=== PATIENT | female | born 1940 | race Caucasian/White ===

== ENCOUNTER 2019-01-04 09:28 | Emergency (ER) | payer MEDICARE ==
--- OUTSIDE RECORDS SUMMARY | 2019-01-04 09:34 | XMS REPORT | Continuity of Care Document ---
:1940 External Reference #:[id number] Author Name Courtney Powell M.D. (transmitted by agent of provider Allie Gasca) Address [address], [place] [address] Care Team Providers Name Role Phone Courtney Powell MD - Internal Care Team Information [employer] [facility] Marisela García CNP - Adult Health Care Team Information [employer] [phone] Problems Active Problems Provider Date Hypothyroidism Paige iRvers N.P. Onset: 12/03/2010 Essential hypertension Maisha Mg M.D. Onset: 12/16/2010 Pure hypercholesterolemia Maisha Mg M.D. Onset: 12/16/2010 Allergic asthma without status asthmaticus Néstor Okeefe M.D. Onset: Stress fracture of metatarsal bone Beka Escamilla MD Onset: 10/17/2017 Nondisplaced fracture of second metatarsal Beka Escamilla MD Onset: 2017 bone, left foot, subsequent encounter for fracture with delayed healing Psoas tendinitis Carlee Sewell M.D. Onset: 09/19/2018 Prosthetic arthroplasty of the hip Carlee Sewell M.D. Onset: 09/19/2018 Social History Type Date Description Comments Sex Unknown Tobacco Use Start: Unknown Never Smoked Cigarettes ETOH Use Occasionally consumes alcohol Tobacco Use Start: Unknown Patient has never smoked Smoking Status Reviewed: 11/21/18 Patient has never smoked Exercise Type/Frequency Exercises regularly Allergies, Adverse Reactions, Alerts Active Allergies Reaction Severity Comments Date PCN 08/29/2006 Codeine ? felt faint 08/29/2006 Medications Active Medications SIG Qnty Indications Ordering Date Provider Celecoxib once a day 30caps M19.049 Courtney 09/25/201 100mg Capsules Jason Powell 9 Diclofenac Sodium apply 1 grams on 100gm M25.549 Zsofia 1% Gel hands twice daily KYAW Barragan 9 Shingrix intramuscular x 1 1units Courtney 50mcg/0.5ML then repeat in 4 Jason Powell 8 Suspension Rec months Norvasc 1 by mouth every 90tabs Courtney 10mg Tablets day Jason Powell 8 Levothyroxine Sodium Take 1 Tablet By 90tabs E03.9 Courtney 88mcg Mouth Every Other Jason Powell 6 Tablets Day Alternating With 100 mcg Levothyroxine Sodium Take 1 Tablet By 90tabs Courtney 100mcg Mouth Every Other Jason Powell 6 Tablets Day Alternating With 88 mcg Every Other Day Magnesium 1 by mouth daily Courtney 250mg Tablets Jason Powell 5 Oxybutynin Chloride ER take 1 tablet by 90tabs [facility] 10mg mouth once a day Jason Powell 4 Tablets ER 24HR Proair HFA Use 2 Puffs By 8.5units [facility] 108(90Base) Mouth Every 4 Jason Powell 4 mcg/Act Aerosol Hours as Needed Zetia take 1 tablet by 90tabs [facility] 10mg Tablets mouth every day Jason Powell 3 Fluticasone Propionate use 1 spray in 16gm [facility] each nostril in Jason Powell 7 50mcg/Act Suspension the morning Aspir-81 1 PO qd Raciel Fraser, 81mg Tablets DR HERMOSILLO 0 Vitamin B-12 1 by mouth 3 times Unknown 5000mcg Tablet a week 0 Premarin 1 application by Unknown Cream way of vagina 0 twice a week Omeprazole Take 1 Capsule By 90caps K21.[address] Mouth Daily as Jason Powell 0 Needed Hydrochlorothiazide Take 1 Capsule By 90caps Courtney 12.5mg Mouth Every Day Jason Powell 0 Capsules Vitamin D 1 by mouth every Unknown 2000Unit Tablets day 0 Medications Administered in Office Medication SIG Qnty Indications Ordering Provider Date Depomedrol 40MG Ángel Escalera M.D. 09/06/2018 Injection Celestone 3 mg and 3mg Ángel Quevedo MD 12/27/2017 Injection Celestone 3 mg and 3mg Ángel Quevedo MD 12/27/2017 Injection Depomedrol 80MG Connor Ahmadi M.D. 10/20/2014 Injection Depomedrol 80MG Connor Ahmadi M.D. 08/11/2014 Injection Synvisc Or Synvisc-One Injection Connor Ahmadi M.D. 12/13/2010 1 MG Injection Synvisc Or Synvisc-One Injection Connor Ahmadi M.D. 12/13/2010 1 MG Injection Immunizations CPT Code Status Date Vaccine Lot # [id number] Given 11/15/2018 Fluzone High Dose 18386 Given 01/22/2018 Pneumonia Vaccine [id number] 15438 Given 11/20/2017 Fluzone High Dose 03496 Given 10/28/2016 Influenza Virus Vaccine, Quadrivalent, Split, Preservative Free 93740 Given 12/25/2015 Fluzone High Dose 59905 Given 12/08/2014 Influenza Virus Vaccine, Quadrivalent, Split, [id number] Preservative Free 53019 Given 01/15/2014 Pneumococcal Conjugate Vaccine 13 Valent For [id number] Intramuscular Use 73495 Given 01/15/2014 Flu Vaccine Split Virus Preservative Free For [id number] Indiv 3Yr Older 94769 Given 11/06/2013 Tdap - Tetanus/Diptheria/Acellular Pertussis [id number] 92572 Given 12/18/2012 Flu Vaccine Split Virus Preservative Free For [id number] Indiv 3Yr Older 67090 Given 01/09/2012 Zoster (Zostavax) 50504 Given 01/09/2012 Zoster (Zostavax) [id number] Q2038 Given 11/23/2011 Fluzone Vaccine 91756 Given 12/03/2010 Influenza Virus 3Yrs & Over [id number] 99963 Given 12/28/2009 Influenza Virus 3Yrs & Over [id number] 95295 Given 03/23/2009 Influenza Virus Vaccine, Pandemic Formulation 21880 Given 03/23/2009 Administration Swine Flu Shot 35330 Given 06/03/2008 Pneumonia Vaccine [id number] 86541 Given 11/28/2006 Influenza Virus 3Yrs & Over [id number] Vital Signs Date Vital Result Comment 11/21/2018 2:09pm Height 64 inches 5'4" Weight 157.00 lb Heart Rate 72 /min BP Systolic Sitting 123 mmHg BP Diastolic Sitting 72 mmHg O2 % BldC Oximetry 98 % BMI (Body Mass Index) 26.9 kg/m2 11/12/2018 1:24pm Height 64 inches 5'4" Weight 160.00 lb Heart Rate 69 /min BP Systolic 138 mmHg BP Diastolic 75 mmHg Body Temperature 97.7 F O2 % BldC Oximetry 95 % BMI (Body Mass Index) 27.5 kg/m2 Results Test Date Facility Test Result H/L Range Note Lipid Profile 11/13/2018 [facility] Triglycerides 140 mg/dL 1 (Trig/Chol/HDL) [address] [place] [address] [phone] Cholesterol 200 mg/dL 2 HDL Cholesterol 57.0 mg/dL 3 LDL Cholesterol 115 mg/dL 4 Laboratory test 11/13/2018 [facility] TSH (Thyroid <pending> finding DRIVE Stim Horm) [place] [address] [phone] T3 Free <pending> Free T4 (Free Thyroxine) <pending> Hemoglobin A1c (Glyco HGB) 5.7 % High 4.0-5.6 5 CBC Auto 11/13/2018 [facility] White Blood 6.2 10^3/uL Normal 3.5-10.[address] [place] [address] [phone] Red Blood Count 4.42 10^6/uL Normal 3.70-4.87 Hemoglobin 13.1 g/dL Normal 12.0-16.0 Hematocrit 40 % Normal 35-47 Mean Corpuscular Volume 90 fL Normal 80-97 Mean Corpuscular Hemoglobin 30 pg Normal 27-31 Mean Corpuscular HGB Conc 33 g/dL Normal 31-36 Red Cell Distribution Width 15 % Normal 10-15 Platelet Count 324 10^3/uL Normal 150-450 Mean Platelet Volume 9.8 fL Normal 7.4-10.4 Abs Neutrophils 2.8 10^3/uL Normal 1.5-7.7 Abs Lymphocytes 2.4 10^3/uL Normal 1.0-4.8 Abs Monocytes 0.4 10^3/uL Normal 0-0.8 Abs Eosinophils 0.5 10^3/uL Normal 0-0.6 Abs Basophils 0.0 10^3/uL Normal 0-0.2 Abs Nucleated RBC 0.0 10^3/uL Granulocyte % 45.2 % Lymphocyte % 39.2 % Monocyte % 7.2 % Eosinophil % 7.8 % Basophil % 0.6 % Nucleated Red Blood Cells % 0.1 Comp Metabolic 11/13/2018 [facility] Sodium 140 mmol/L Normal 135-[address] [place] [address] [phone] Potassium 3.9 mmol/L Normal 3.5-5.0 Chloride 108 mmol/L Normal 101-111 Co2 Carbon Dioxide 27 mmol/L Normal 22-32 Anion Gap 5 mmol/L Normal 2-11 Glucose 90 mg/dL Normal 70-100 Blood Urea Nitrogen 27 mg/dL High 6-24 Creatinine 0.71 mg/dL Normal 0.51-0.95 BUN/Creatinine Ratio 38.0 High 8-20 Calcium 9.3 mg/dL Normal 8.6-10.3 Total Protein 6.3 g/dL Low 6.4-8.9 Albumin 4.1 g/dL Normal 3.2-5.2 Globulin 2.2 g/dL Normal 2-4 Albumin/Globulin Ratio 1.9 Normal 1-3 Total Bilirubin 0.50 mg/dL Normal 0.2-1.0 Alkaline Phosphatase 59 U/L Normal 34-104 Alt 18 U/L Normal 7-52 Ast 19 U/L Normal 13-39 Egfr Non- 79.8 >60 Egfr 96.6 >60 6 Laboratory test 11/13/2018 [facility] C Reactive 5.95 mg/L Normal <8.[address] [place] [address] [phone] Erythrocyte Sed Rate 10 mm/Hr Normal 0-29 Rheumatoid Factor < 10 IU/mL Normal <15 Uric Acid 6.4 mg/dL Normal 2.3-6.6 Cyclic Citrullinated Pep Igg <15.6 U 7 Lipid Profile 09/03/2018 [facility] Triglycerides 177 mg/dL 8 (Trig/Chol/HDL) [address] [place] [address] [phone] Cholesterol 233 mg/dL 9 HDL Cholesterol 53.9 mg/dL 10 LDL Cholesterol 144 mg/dL 11 Laboratory test 09/03/2018 [facility] Hemoglobin A1c 5.5 % Normal 4.0-5.6 [address] (Glyco HGB) [place] [address] [phone] Comp Metabolic 09/03/2018 [facility] Sodium 143 Normal 135- [address] mmol/L [place], [place] [id number] [phone] Potassium 3.8 mmol/L Normal 3.5-5.0 Chloride 108 mmol/L Normal 101-111 Co2 Carbon Dioxide 27 mmol/L Normal 22-32 Anion Gap 8 mmol/L Normal 2-11 Glucose 100 mg/dL Normal 70-100 Blood Urea Nitrogen 19 mg/dL Normal 6-24 Creatinine 0.62 mg/dL Normal 0.51-0.95 BUN/Creatinine Ratio 30.6 High 8-20 Calcium 9.4 mg/dL Normal 8.6-10.3 Total Protein 6.6 g/dL Normal 6.4-8.9 Albumin 4.1 g/dL Normal 3.2-5.2 Globulin 2.5 g/dL Normal 2-4 Albumin/Globulin Ratio 1.6 Normal 1-3 Total Bilirubin 0.60 mg/dL Normal 0.2-1.0 Alkaline Phosphatase 58 U/L Normal 34-104 Alt 15 U/L Normal 7-52 Ast 17 U/L Normal 13-39 Egfr Non- 93.6 >60 Egfr 113.2 >60 13 1 Desirable: <150 Borderline High: 150-199 High: 200-499 Very High: >500 2 Desirable: <200 Borderline High: 200-239 High: >239 3 Low: <40 Desirable: 40-60 High: >60 4 Desirable: <100 Near Optimal: 100-129 Borderline High: 130-159 High: 160-189 Very High: >189 5 Therapeutic target for the treatment of diabetes mellitus patients is <7% HBA1C, and in selective patients <6.0%. Please refer to [place] [employer] diabetic care guidelines for further information. 6 Because ethnic data is not always readily available, this report includes an eGFR for both -Americans and non- Americans. The National Kidney Disease Education Program (NKDEP) does not endorse the use of the MDRD equation for patients that are not between the ages of 18 and 70, are , have extremes of body size, muscle mass, or nutritional status, or are non- or non-. According to the National Kidney Foundation, irrespective of diagnosis, the stage of the disease is based on the level of kidney function: Stage Description GFR(mL/min/1.73 m(2)) 1 Kidney damage with normal or decreased GFR 90 2 Kidney damage with mild decrease in GFR 60-89 3 Moderate decrease in GFR 30-59 4 Severe decrease in GFR 15-29 5 Kidney failure <15 (or dialysis) 7 REFERENCE VALUE <20.0 (Negative) Test Performed by: [facility] [address] [place] [address] Lpta: Dionisio Walsh M.D. Ph.D.; IA# [id number] 8 Desirable: <150 Borderline High: 150-199 High: 200-499 Very High: >500 9 Desirable: <200 Borderline High: 200-239 High: >239 10 Low: <40 Desirable: 40-60 High: >60 11 Desirable: <100 Near Optimal: 100-129 Borderline High: 130-159 High: 160-189 Very High: >189 12 Therapeutic target for the treatment of diabetes mellitus patients is <7% HBA1C, and in selective patients <6.0%. Please refer to [place] [employer] diabetic care guidelines for further information. 13 Because ethnic data is not always readily available, this report includes an eGFR for both -Americans and non- Americans. The National Kidney Disease Education Program (NKDEP) does not endorse the use of the MDRD equation for patients that are not between the ages of 18 and 70, are , have extremes of body size, muscle mass, or nutritional status, or are non- or non-. According to the National Kidney Foundation, irrespective of diagnosis, the stage of the disease is based on the level of kidney function: Stage Description GFR(mL/min/1.73 m(2)) 1 Kidney damage with normal or decreased GFR 90 2 Kidney damage with mild decrease in GFR 60-89 3 Moderate decrease in GFR 30-59 4 Severe decrease in GFR 15-29 5 Kidney failure <15 (or dialysis) Procedures Date Code Description Status 09/06/2018 [id number] Inject/Drain Joint/Bursa Small W/O US Completed 10/05/2017 [id number] Bone Mineral Density Test Completed 12/23/2016 [id number] Mammogram Completed 05/16/2016 [id number] Diabetic Retinal Eye Exam Completed 04/16/2013 [id number] Bone Mineral Density Test Completed 04/16/2013 [id number] Mammogram Completed 06/10/2011 [id number] Colonoscopy Completed 08/06/2009 [id number] Bone Mineral Density Test Completed 08/06/2009 [id number] Mammogram Completed 07/25/2007 [id number] Colonoscopy Completed Medical Devices Description No Information Available Encounters Type Date Location Provider Dx Diagnosis Office Visit 11/12/2018 Rheumatology Callum Barragan, M25.541 Pain in joints 1:00p [facility] [employer] of right hand Ccmob M25.522 Pain in left elbow M25.542 Pain in joints of left hand Office Visit 09/19/2018 10:45a Orthopedic Services Carlee Sewell M25.552 Pain in left Of C.M.A. M.DBoo hip M76.12 Psoas tendinitis, left hip Z96.642 Presence of left artificial hip joint Office Visit 09/06/2018 Orthopedic Ángel M76.72 Peroneal tendinitis, 10:00a Services Of Jason Escalera left leg C.M.A. Office Visit 09/05/2018 [employer] [facility] Internal Courtney E78.2 Mixed hyperlipidemia 2:20p Medicine - Keegan Powell M.D. 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 11/21/2018 E03.9 Hypothyroidism, unspecified Courtney Powell M.D. 11/12/2018 M25.541 Pain in joints of right hand Callum Barragan, [employer] SUPERVISOR 11/12/2018 M25.522 Pain in left elbow Callum Barragan, P[employer] SUPERVISOR 11/12/2018 M25.542 Pain in joints of left hand Callum Barragan, [employer] SUPER[employer]OR 09/19/2018 M25.552 Pain in left hip Carleeumberto Sewell M.D. 09/19/2018 M76.12 Psoas tendinitis, left hip Carlee Sewell M.D. 09/19/2018 Z96.642 Presence of left artificial hip joint Carlee Sewell M.D. 09/06/2018 M76.72 Peroneal tendinitis, left leg Ángel Escalera M.D. 09/05/2018 E78.2 Mixed hyperlipidemia Courtney Powell M.D. 09/05/2018 E03.9 Hypothyroidism, unspecified Courtney Powell M.D. 08/13/2018 M25.552 Pain in left hip Courtney Powell M.D. 08/13/2018 M25.522 Pain in left elbow Courtney Powell M.D. 08/13/2018 R73.01 Impaired fasting glucose Courtney Powell M.D. 08/13/2018 E78.2 Mixed hyperlipidemia Courtney Powell M.D. 08/13/2018 I10 Essential (primary) hypertension Courtney Powell M.D. Plan of Treatment Future Appointment(s):11/26/2018 3:30 pm - KYAW Sinclair at [facility]11/21/2018 - Courtney Powell M.D.M19.049 Primary osteoarthritis, unspecified handNew Medication:Celecoxib 100 mg - once a dayE03.9 Hypothyroidism, unspecified Functional Status Description No Information Available Mental Status Description No Information Available Referrals Refer to Dr Reason for Referral Status Appt Date Harry Mckeon MD multiple bone/joint pain Scheduled 11/12/[address] [facility] [place] [address] [phone]
--- OUTSIDE RECORDS SUMMARY | 2019-01-04 09:34 | XMS REPORT | Continuity of Care Document ---
:1940 External Reference #:[id number] Author Name Ángel Escalera M.D. (transmitted by agent of provider Rosie Rick) Address [address] [place] [address] Care Team Providers Name Role Phone Courtney Powell MD - Internal Care Team Information Rn New Grad Medicine Marisela García CNP - Adult Health Care Team Information Rn New Grad [phone] Problems Active Problems Provider Date Hypothyroidism Whitney BonePBoo Onset: 12/03/2010 Essential hypertension Maisha Mg M.D. [...] Patient has never smoked Smoking Status Reviewed: 01/01/19 Patient has never smoked Exercise Type/Frequency Exercises regularly Allergies, Adverse Reactions, Alerts Active Allergies Reaction Severity Comments Date PCN 08/29/2006 Codeine ? felt faint 08/29/2006 Medications Active Medications SIG Qnty Indications Ordering Date Provider Celecoxib once a day 30caps M19.049 Courtney 100mg Capsules Jason Powell 9 Diclofenac Sodium apply 1 grams on 100gm M25.549 Zsofia 1% Gel hands twice daily KYAW Barragan 9 Shingrix intramuscular x 1 1units [facility] 50mcg/0.5ML then repeat in 4 Jason Powell 8 Suspension Rec months Norvasc 1 by mouth every 120tabs Courtney 10mg Tablets day Jason Powell 8 Levothyroxine Sodium Take 1 Tablet By 90tabs E03.9 Courtney 88mcg Mouth Every Other Jason Powell 6 Tablets Day Alternating With 100 mcg Levothyroxine Sodium Take 1 Tablet By 90tabs Courtney 100mcg Mouth Every Other Jason Powell 6 Tablets Day Alternating With 88 mcg Every Other Day Magnesium 1 by mouth daily [facility] 250mg Tablets Jason Powell 5 Oxybutynin Chloride ER take 1 tablet by 120tabs Courtney 10mg mouth once a day Jason Powell 4 Tablets ER 24HR Proair HFA Use 2 Puffs By 8.5units [facility] 108(90Base) Mouth Every 4 Jason Powell 4 mcg/Act Aerosol Hours as Needed Zetia take 1 tablet by 120tabs [facility] 10mg Tablets mouth every day Jason Powell 3 Fluticasone Propionate use 1 spray in 16gm [facility] each nostril in Jason Powell 7 50mcg/Act [...] CPT Code Status Date Vaccine Lot # [id number] Given 11/15/2018 Fluzone High Dose 51037 Given 01/22/2018 Pneumonia Vaccine [id number] 36313 Given 11/20/2017 Fluzone High Dose 88971 Given 10/28/2016 Influenza Virus Vaccine, Quadrivalent, Split, Preservative Free 87966 Given 12/25/2015 Fluzone High Dose 79611 Given 12/08/2014 Influenza Virus Vaccine, Quadrivalent, Split, [id number] Preservative Free 07547 Given 01/15/2014 Pneumococcal Conjugate Vaccine 13 Valent For [id number] Intramuscular Use 44651 Given 01/15/2014 Flu Vaccine Split Virus Preservative Free For [id number] Indiv 3Yr Older 57669 Given 11/06/2013 Tdap - Tetanus/Diptheria/Acellular Pertussis [id number] 90124 Given 12/18/2012 Flu Vaccine Split Virus Preservative Free For [id number] Indiv 3Yr Older 99454 Given 01/09/2012 Zoster (Zostavax) 22613 Given 01/09/2012 Zoster (Zostavax) [id number] Q2038 Given 11/23/2011 Fluzone Vaccine 24517 Given 12/03/2010 Influenza Virus 3Yrs & Over [id number] 04492 Given 12/28/2009 Influenza Virus 3Yrs & Over [id number] 57721 Given 03/23/2009 Influenza Virus Vaccine, Pandemic Formulation 63538 Given 03/23/2009 Administration Swine Flu Shot 80674 Given 06/03/2008 Pneumonia Vaccine [id number] 51024 Given 11/28/2006 Influenza Virus 3Yrs & Over 91466 Vital Signs Date Vital Result Comment 01/01/2019 11:33am Height 64 inches 5'4" Weight 158.00 lb Heart Rate 68 /min BP Systolic 136 mmHg BP Diastolic 76 mmHg Body Temperature 98.6 F Pain Level 5 BMI (Body Mass Index) 27.1 kg/m2 11/28/2018 2:11pm Height 64 inches 5'4" Weight 157.50 lb Heart Rate 72 /min BP Systolic 120 mmHg BP Diastolic 68 mmHg Body Temperature 97.3 F Pain Level 3 O2 % BldC Oximetry 97 % BMI (Body Mass Index) 27.0 kg/m2 Results Test Acquired Date Facility Test Result H/L Range Note Laboratory test 11/28/2018 [facility] TSH 0.06 mcIU/mL Low 0.34-5.60 finding [facility] ([place] [address] Stim Horm) [phone] Free T4 (Free Thyroxine) 1.22 ng/dL High 0.61-1.12 Pthi 11/28/2018 [facility] Calcium (PTH 9.7 mg/dL Normal 8.6- 10.3 [facility] Intact) [place] [address] [phone] PTH Intact 38.7 pg/mL Normal 12-88 Laboratory test 11/28/2018 [facility] Calcium 9.8 mg/dL Normal 8.6-10.3 [place] [address] [phone] Phosphorus 4.6 mg/dL Normal 2.5-5.0 Iron & Iron Binding 11/28/2018 [facility] Iron 91 g/dL Normal 50-212 [place] [address] [phone] Unsaturated Iron Binding < 349 g/dL Total Iron Binding Capacity 364 g/dL Normal 250-450 Transferrin 260 mg/dL Normal 203-362 % Iron Saturation 25 % Normal 15-55 Laboratory test 11/28/2018 [facility] Ferritin 48.0 ng/mL Normal 11-307 [place] [address] [phone] Laboratory test 11/13/2018 [facility] C Reactive 5.95 mg/L Normal <8.[address] [place] [address] [phone] Erythrocyte Sed Rate 10 mm/Hr Normal 0-29 Rheumatoid Factor < 10 IU/mL Normal <15 Uric Acid 6.4 mg/dL Normal 2.3-6.6 Cyclic Citrullinated Pep Igg <15.6 U 1 Comp Metabolic 11/13/2018 [facility] Sodium 140 mmol/L Normal 135-[address] [place] [address] [phone] Potassium 3.9 mmol/L Normal 3.5-5.0 Chloride 108 [...] Egfr Non- 79.8 >60 Egfr 96.6 >60 2 CBC Auto 11/13/2018 [facility] White Blood 6.2 10^3/uL Normal 3.5-10.[address] [place] [address] [phone] Red Blood Count 4.42 10^6/uL Normal 3.70-4.87 [...] % Nucleated Red Blood Cells % 0.1 Laboratory test 11/13/2018 [facility] Hemoglobin A1c 5.7 % High 4.0-5.[address] (Glyco HGB) [place] [address] [phone] Lipid Profile 11/13/2018 [facility] Triglycerides 140 4 (Trig/Chol/HDL) 101 mg/[place] [address] [phone] Cholesterol 200 mg/dL 5 HDL Cholesterol 57.0 mg/dL 6 LDL Cholesterol 115 mg/dL 7 Lipid Profile 09/03/2018 [facility] Triglycerides 177 mg/dL 8 (Trig/Chol/HDL) [address] [place] [address] [phone] Cholesterol 233 mg/dL 9 HDL Cholesterol 53.9 mg/dL 10 LDL Cholesterol 144 mg/dL 11 Laboratory test 09/03/2018 [facility] Hemoglobin A1c 5.5 % Normal 4.0-5.6 [address] (Glyco HGB) [place] [address] [phone] Comp Metabolic 09/03/2018 [facility] Sodium 143 Normal 135- [address] mmol/[place] [address] [phone] Potassium 3.8 mmol/L Normal 3.5-5.0 Chloride 108 [...] 93.6 >60 Egfr 113.2 >60 13 1 REFERENCE VALUE <20.0 (Negative) Test Performed by: [facility] [place] [address] Mixer Operator Raw Salt: Dionisio Walsh M.D. Ph.D.; IA# [id number] 2 Because ethnic data is not always readily [...] 15-29 5 Kidney failure <15 (or dialysis) 3 Therapeutic target for the treatment of diabetes mellitus patients is <7% HBA1C, and in selective patients <6.0%. Please refer to [place] [employer] diabetic care guidelines for further information. 4 Desirable: <150 Borderline High: 150-199 High: 200-499 Very High: >500 5 Desirable: <200 Borderline High: 200-239 High: >239 6 Low: <40 Desirable: 40-60 High: >60 7 Desirable: <100 Near Optimal: 100-129 Borderline High: 130-159 High: 160-189 Very High: >189 8 Desirable: <150 Borderline High: 150-199 High: 200-499 Very High: >500 9 Desirable: <200 Borderline High: 200-239 High: >239 10 Low: <40 Desirable: 40-60 High: >60 11 Desirable: <100 Near Optimal: 100-129 Borderline High: 130-159 High: 160-189 Very High: >189 12 Therapeutic target for the treatment of diabetes mellitus patients is <7% HBA1C, and in selective patients <6.0%. Please refer to [place] [employer] diabetic care guidelines for further [...] (or dialysis) Procedures Date Code Description Status 01/01/2019 37586 Injection Single Tendon Origin/Insertion Completed 11/28/2018 44694 Ultrasound, Extremity, Nonvascular, Real-Time W/Image Completed Doc,Limited 09/06/2018 Inject/Drain Joint/Bursa Small W/O US Completed 10/05/2017 [id number] Bone Mineral Density Test Completed 12/23/2016 [id number] Mammogram Completed 05/16/2016 [id number] Diabetic Retinal Eye Exam Completed 04/16/2013 [id number] Bone Mineral Density Test Completed 04/16/2013 [id number] Mammogram Completed 06/10/2011 [id number] Colonoscopy Completed 08/06/2009 [id number] Bone Mineral Density Test Completed 08/06/2009 [id number] Mammogram Completed 07/25/2007 [id number] Colonoscopy Completed Medical Devices Description No Information Available Encounters Type Date Location Provider Dx Diagnosis Office Visit 11/28/2018 Rheumatology Cesar Ferreira, 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 osteoarthritis, Ccmob unspecified hand E03.9 Hypothyroidism, unspecified Office Visit 11/12/2018 1:00p Rheumatology Callum Barragan, M25.541 Pain in [facility] - [employer] joints of Ccmob right hand M25.522 Pain in left elbow M25.542 Pain in joints of left hand Office Visit 09/19/2018 10:45a [facility] Carlee Sewell, M25.552 Pain in left at [place] M.DBoo hip M76.12 Psoas tendinitis, left hip Z96.642 Presence of left artificial hip joint Office Visit 09/06/2018 Paola Neal M76.72 Peroneal tendinitis, 10:00a Orthopedics ila Escalera M.D. left leg [place] Office Visit 09/05/2018 [facility] Internal Courtney E78.2 Mixed [facility] E[facility].9 Hypothyroidism, unspecified Office Visit 08/13/2018 9:50a [facility] Internal Courtney Powell M25.552 [facility] M25.522 Pain in left elbow R73.01 Impaired fasting glucose E78.2 Mixed hyperlipidemia I10 Essential (primary) hypertension Assessments Date Code Description Provider 01/01/2019 M76.72 Peroneal tendinitis, left leg Ángel Escalera M.D. 11/28/2018 M06.4 Inflammatory polyarthropathy Cesar Ferreira MD 11/28/2018 M18.0 Osteoarthritis of joint of left hand Cesar Ferreira MD 11/21/2018 M19.049 Primary osteoarthritis, unspecified hand Courtney Powell M.D. 11/21/2018 E03.9 Hypothyroidism, unspecified Courtney Powell M.D. 11/12/2018 M25.541 Pain in joints of right hand Rupaliofia Yung, [employer] 11/12/2018 M25.522 Pain in left elbow Zsofia Yung, [employer] 11/12/2018 M25.542 Pain in joints of left hand Zsofia Yung, [employer] 09/19/2018 M25.552 Pain in left hip Carlee Sewell M.D. 09/19/2018 M76.12 Psoas tendinitis, left [...] Courtney Powell M.D. Plan of Treatment Future Appointment(s):01/07/2019 2:00 pm - Cesar Ferreira MD at [facility]01/01/2019 - Ángel Escalera M.D.M76.72 Peroneal tendinitis, left legNew Therapy:Physical Therapy Functional Status Description No Information Available Mental Status Description No Information Available Referrals Refer to Dr Reason for Referral Status Appt Date Harry Mckeon MD multiple bone/joint pain Scheduled 11/12/2018 [address] [facility] [address] [place] [id number] [phone]
--- OUTSIDE RECORDS SUMMARY | 2019-01-04 09:34 | XMS REPORT | Continuity of Care Document ---
:1940 External Reference #:[id number] Author Name Cesar Ferreira MD (transmitted by agent of provider Diandra Junior) Address [address] [place] [id number] Care Team Providers Name Role Phone Courtney Powell MD - Internal Care Team Information [employer] Product Development Manager [phone] Medicine Marisela García CNP - Adult Health Care Team Information [employer] Product Development Manager Problems Active Problems Provider Date Hypothyroidism Kalli Bone.PBoo Onset: 12/03/2010 Essential hypertension Maisha Mg M.D. [...] Patient has never smoked Smoking Status Reviewed: 11/28/18 Patient has never smoked Exercise Type/Frequency Exercises [...] Barragan 9 Shingrix intramuscular x 1 1units [facility] 50mcg/0.5ML then repeat in 4 Jason Powell 8 Suspension Rec months Norvasc 1 by mouth every 90tabs [facility] 10mg Tablets day Jason Powell 8 Levothyroxine Sodium Take 1 Tablet By 90tabs E03.9 Courtney 88mcg Mouth Every Other Jason Powell 6 Tablets Day Alternating With 100 mcg Levothyroxine Sodium Take 1 Tablet By 90tabs [facility] 100mcg Mouth Every Other Jason Powell 6 Tablets Day Alternating With 88 mcg Every Other Day Magnesium 1 by mouth daily [facility] 250mg Tablets Jason Powell 5 Oxybutynin Chloride ER take 1 tablet by 90tabs [facility] 10mg mouth once a day Jason Powell 4 Tablets ER 24HR Proair HFA Use 2 Puffs By 8.5units Courtney 108(90Base) Mouth Every 4 Jason Powell 4 mcg/Act Aerosol Hours as Needed Zetia take 1 tablet by 90tabs [facility] 10mg Tablets mouth every day Jason Powell 3 Fluticasone Propionate use 1 spray in 16gm [facility] each nostril in Jason Powell 7 50mcg/Act [...] By 90caps Courtney 12.5mg Mouth Every Day Jsaon Powell 0 Capsules Vitamin D 1 by [...] CPT Code Status Date Vaccine Lot # [id number] Given 11/15/2018 Fluzone High Dose 52567 Given 01/22/2018 Pneumonia Vaccine [id number] 41874 Given 11/20/2017 Fluzone High Dose 51785 Given 10/28/2016 Influenza Virus Vaccine, Quadrivalent, Split, Preservative Free 44551 Given 12/25/2015 Fluzone High Dose 79244 Given 12/08/2014 Influenza Virus Vaccine, Quadrivalent, Split, [id number] Preservative Free 10280 Given 01/15/2014 Pneumococcal Conjugate Vaccine 13 Valent For [id number] Intramuscular Use 47857 Given 01/15/2014 Flu Vaccine Split Virus Preservative Free For [id number] Indiv 3Yr Older 97725 Given 11/06/2013 Tdap - Tetanus/Diptheria/Acellular Pertussis [id number] 17126 Given 12/18/2012 Flu Vaccine Split Virus Preservative Free For [id number] Indiv 3Yr Older 31882 Given 01/09/2012 Zoster (Zostavax) 35536 Given 01/09/2012 Zoster (Zostavax) [id number] Q2038 Given 11/23/2011 Fluzone Vaccine 98385 Given 12/03/2010 Influenza Virus 3Yrs & Over [id number] 42444 Given 12/28/2009 Influenza Virus 3Yrs & Over [id number] 86937 Given 03/23/2009 Influenza Virus Vaccine, Pandemic Formulation 68237 Given 03/23/2009 Administration Swine Flu Shot 16144 Given 06/03/2008 Pneumonia Vaccine [id number] 39324 Given 11/28/2006 Influenza Virus 3Yrs & Over 69276 Vital Signs Date Vital Result Comment 11/28/2018 2:11pm Height 64 inches 5'4" Weight 157.50 lb Heart Rate 72 /min BP Systolic 120 mmHg BP Diastolic 68 mmHg Body Temperature 97.3 F Pain Level 3 O2 % BldC Oximetry 97 % BMI (Body Mass Index) 27.0 kg/m2 11/21/2018 2:09pm Height 64 inches 5'4" Weight 157.00 lb Heart Rate 72 /min BP Systolic Sitting 123 mmHg BP Diastolic Sitting 72 mmHg O2 % BldC Oximetry 98 % BMI (Body Mass Index) 26.9 kg/m2 Results Test Date Facility Test Result H/L Range Note Lipid Profile 11/13/2018 [facility] Triglycerides 140 mg/dL 1 (Trig/Chol/HDL) [address] [place] [address] [phone] Cholesterol 200 mg/dL 2 HDL Cholesterol 57.0 mg/dL 3 LDL Cholesterol 115 mg/dL 4 Laboratory test 11/13/2018 [facility] Hemoglobin A1c 5.7 % High 4.0-5.[address] (Glyco HGB) [place] [address] [phone] CBC Auto Diff 11/13/2018 [facility] White Blood 6.2 Normal 3.5 -10.[address] Count 10^3/[place] [address] [phone] Red Blood Count 4.42 10^6/uL Normal 3.70-4.87 [...] Blood Cells % 0.1 Comp Metabolic 11/13/2018 [facility] Sodium 140 mmol/L Normal 135-[address] [place] [address] [phone] Potassium 3.9 mmol/L Normal 3.5-5.0 Chloride 108 [...] Egfr 96.6 >60 6 Laboratory test 11/13/2018 [facility] C Reactive 5.95 mg/L Normal <8.[address] [place] [address] [phone] Erythrocyte Sed Rate 10 mm/Hr Normal 0-29 Rheumatoid Factor < 10 IU/mL Normal <15 Uric Acid 6.4 mg/dL Normal 2.3-6.6 Cyclic Citrullinated Pep Igg <15.6 U 7 Lipid Profile 09/03/2018 [facility] Triglycerides 177 mg/dL 8 (Trig/Chol/HDL) [address] [place] [address] [phone] Cholesterol 233 mg/dL 9 HDL Cholesterol 53.9 mg/dL 10 LDL Cholesterol 144 mg/dL 11 Laboratory test 09/03/2018 [facility] Hemoglobin A1c 5.5 % Normal 4.0-5.6 [address] (Glyco HGB) [place] [address] [phone] Comp Metabolic 09/03/2018 [facility] Sodium 143 Normal 135- [address] mmol/[place] [address] [phone] Potassium 3.8 mmol/L Normal 3.5-5.0 Chloride 108 [...] in selective patients <6.0%. Please refer to [place] [employer] diabetic care guidelines for further [...] REFERENCE VALUE <20.0 (Negative) Test Performed by: [facility] [place] [address] Developmental Education Instructor: Dionisio Walsh M.D. Ph.D.; IA# [id number] Desirable: <150 Borderline High: 150-199 High: 200-499 Very High: >500 9 Desirable: <200 Borderline High: 200-239 High: >239 10 Low: <40 Desirable: 40-60 High: >60 11 Desirable: <100 Near Optimal: 100-129 Borderline High: 130-159 High: 160-189 Very High: >189 12 Therapeutic target for the treatment of diabetes mellitus patients is <7% HBA1C, and in selective patients <6.0%. Please refer to [place] [employer] diabetic care guidelines for further [...] (or dialysis) Procedures Date Code Description Status 11/28/2018 76493 Ultrasound, Extremity, Nonvascular, Real-Time W/Image Completed Doc,Limited 09/06/2018 23171 Inject/Drain Joint/Bursa Small W/O US Completed 10/05/2017 [id number] Bone Mineral Density Test Completed 12/23/2016 [id number] Mammogram Completed 05/16/2016 [id number] Diabetic Retinal Eye Exam Completed 04/16/2013 [id number] Bone Mineral Density Test Completed 04/16/2013 [id number] Mammogram Completed 06/10/2011 [id number] Colonoscopy Completed 08/06/2009 [id number] Bone Mineral Density Test Completed 08/06/2009 [id number] Mammogram Completed 07/25/2007 [id number] Colonoscopy Completed Medical Devices Description No Information Available Encounters Type Date Location Provider Dx Diagnosis Office Visit 11/21/2018 [facility] Internal Courtney Powell, M19.049 Primary 2:00p Medicine - Keegan Gomez osteoarthritis, unspecified hand E03.9 Hypothyroidism, unspecified Office Visit 11/12/2018 1:00p Rheumatology Callum Barragan, M25.541 Pain in Services Of [facility] - [employer] OFFICER joints of [facility] right hand M25.522 Pain in left elbow M25.542 Pain in joints of left hand Office Visit 09/19/2018 10:45a [employer] [facility] Carlee Sewell M25.552 Pain in left at Jass Gomez hip M76.12 Psoas tendinitis, left hip Z96.642 Presence of left artificial hip joint Office Visit 09/06/2018 [employer] Ángel M76.72 Peroneal tendinitis, 10:00a Orthopedics at Jason Escalera left leg [place] Office Visit 09/05/2018 Honorio Valdez E78.2 Mixed hyperlipidemia 2:20p Tirso Powell M.D. E03.9 Hypothyroidism, unspecified Office Visit 08/13/2018 9:50a Honorio Powell M25.552 Pain in left Medicine - Keegan Gomez hip M25.522 Pain in left elbow R73.01 Impaired fasting glucose E78.2 Mixed hyperlipidemia I10 Essential (primary) hypertension Assessments Date Code Description Provider 11/28/2018 M06.4 Inflammatory polyarthropathy Cesar Ferreira MD 11/28/2018 M18.0 Osteoarthritis of joint of left hand Csear Ferreira MD 11/21/2018 M19.049 Primary osteoarthritis, unspecified hand Courtney Powell M.D. 11/21/2018 E03.9 Hypothyroidism, unspecified Courtney Powell M.D. 11/12/2018 M25.541 Pain in joints of right hand Zsofia Yung, [facility] 11/12/2018 M25.522 Pain in left elbow Zsofia Yung, [facility] 11/12/2018 M25.542 Pain in joints of left hand Zsofia Yung, [facility] 09/19/2018 M25.552 Pain in left hip Carlee [...] Courtney Powell M.D. Plan of Treatment Future Appointment(s):12/26/2018 2:00 pm - Cesar Ferreira MD at [facility]11/28/2018 - Cesar Ferreira, MDM06.4 Inflammatory polyarthropathyNew Therapy:Occupational TherapyFollow up:f/u 4 weeks Take Celebrex daily, pay attention to morning stiffness and finger pains as well as foot painM18.0 Osteoarthritis of joint of left hand Functional Status Description No Information Available Mental Status Description No Information Available Referrals Refer to Reason for Referral Status Appt Date Harry Mckeon MD multiple bone/joint pain Scheduled 11/12/2018 [facility] [place] [address] [place] [address] [phone]
--- OUTSIDE RECORDS SUMMARY | 2019-01-04 09:34 | XMS REPORT | Continuity of Care Document ---
:1940 External Reference #:[id number] Author Name KYAW Sinclair (transmitted by agent of provider Allie Gasca) Address [address] [place] [id number] Care Team Providers Name Role Phone Courtney Powell MD - Internal Care Team Information Press Operator Meat [phone] Medicine Marisela García CNP - Adult Health Care Team Information Press Operator Meat Problems Active Problems Provider Date Hypothyroidism Whitney [...] Patient has never smoked Smoking Status Reviewed: 11/12/18 Patient has never smoked Exercise Type/Frequency Exercises regularly Allergies, Adverse Reactions, Alerts Active Allergies Reaction Severity Comments Date PCN 08/29/2006 Codeine ? felt faint 08/29/2006 Medications Active Medications SIG Qnty Indications Ordering Date Provider Diclofenac Sodium apply 1 grams on 100gm M25.549 Kenyaa 1% Gel hands twice daily KYAW Barragan 9 Shingrix intramuscular x 1 1units Courtney 50mcg/0.5ML then repeat in 4 Jason Powell 8 Suspension Rec months Norvasc 1 by mouth every 90tabs Courtney 10mg Tablets day Jason Powell 8 Flovent HFA 2 puffs bid prn 36gm Courtney 220mcg/Act Jason Powell 7 Aerosol Levothyroxine Sodium Take 1 Tablet By 90tabs [...] Chloride ER take 1 tablet by 90tabs Courtney 10mg mouth once a day Jason Powell 4 Tablets ER 24HR Proair HFA Use 2 Puffs By 8.5units [facility] 108(90Base) Mouth Every 4 Jason Powell 4 mcg/Act Aerosol Hours as Needed Zetia take 1 tablet by 90tabs Courtney 10mg Tablets mouth every day Jason Powell 3 Fluticasone Propionate use 1 spray in 16gm Courtney each nostril in Jason Powell 7 50mcg/Act [...] CPT Code Status Date Vaccine Lot # [id number] Given 01/22/2018 Pneumonia Vaccine [id number] 84979 Given 11/20/2017 Fluzone High Dose 85329 Given 10/28/2016 Influenza Virus Vaccine, Quadrivalent, Split, Preservative Free 44743 Given 12/25/2015 Fluzone High Dose 41548 Given 12/08/2014 Influenza Virus Vaccine, Quadrivalent, Split, [id number] Preservative Free 67894 Given 01/15/2014 Pneumococcal Conjugate Vaccine 13 Valent For [id number] Intramuscular Use 00529 Given 01/15/2014 Flu Vaccine Split Virus Preservative Free For [id number] Indiv 3Yr Older 82506 Given 11/06/2013 Tdap - Tetanus/Diptheria/Acellular Pertussis [id number] 84597 Given 12/18/2012 Flu Vaccine Split Virus Preservative Free For [id number] Indiv 3Yr Older 13268 Given 01/09/2012 Zoster (Zostavax) [id number] 68351 Given 01/09/2012 Zoster (Zostavax) [id number] Given 11/23/2011 Fluzone Vaccine 52549 Given 12/03/2010 Influenza Virus 3Yrs & Over [id number] 62651 Given 12/28/2009 Influenza Virus 3Yrs & Over [id number] 77598 Given 03/23/2009 Influenza Virus Vaccine, Pandemic Formulation 35228 Given 03/23/2009 Administration Swine Flu Shot 99005 Given 06/03/2008 Pneumonia Vaccine [id number] 17503 Given 11/28/2006 Influenza Virus 3Yrs & Over [id number] Vital Signs Date Vital Result Comment 11/12/2018 1:24pm Height 64 inches 5'4" Weight 160.00 lb Heart Rate 69 /min BP Systolic 138 mmHg BP Diastolic 75 mmHg Body Temperature 97.7 F O2 % BldC Oximetry 95 % BMI (Body Mass Index) 27.5 kg/m2 09/19/2018 11:15am Height 64 inches 5'4" Weight 155.00 lb Heart Rate 70 /min BP Systolic 118 mmHg BP Diastolic 78 mmHg Respiratory Rate 16 /min Body Temperature 97.7 F Pain Level 8 BMI (Body Mass Index) 26.6 kg/m2 Results Test Date Facility Test Result H/L Range Note Lipid Profile 09/03/2018 [facility] Triglycerides 177 mg/dL 1 (Trig/Chol/HDL) [address] [place] [address] [phone] Cholesterol 233 mg/dL 2 HDL Cholesterol 53.9 mg/dL 3 LDL Cholesterol 144 mg/dL 4 Laboratory test 09/03/2018 [facility] Hemoglobin A1c 5.5 % Normal 4.0-5.[address] (Glyco HGB) [place] [address] [phone] Comp Metabolic 09/03/2018 [facility] Sodium 143 Normal 135- [address] mmol/[place] [address] [phone] Potassium 3.8 mmol/L Normal 3.5-5.0 Chloride 108 [...] Egfr Non- 93.6 >60 Egfr 113.2 >60 6 1 Desirable: <150 Borderline High: 150-199 High: 200-499 Very High: >500 2 Desirable: <200 Borderline High: 200-239 High: >239 3 Low: <40 Desirable: 40-60 High: >60 4 Desirable: <100 Near Optimal: 100-129 Borderline High: 130-159 High: 160-189 Very High: >189 5 Therapeutic target for the treatment of diabetes mellitus patients is <7% HBA1C, and in selective patients <6.0%. Please refer to [place] [employer] diabetic care guidelines for further [...] dialysis) Procedures Date Code Description Status 09/06/2018 01196 Inject/Drain Joint/Bursa Small W/O US Completed 10/05/2017 771400801 Bone Mineral Density Test Completed 12/23/2016 [id number] Mammogram Completed 05/16/2016 103259097 Diabetic Retinal Eye Exam Completed 04/16/2013 [id number] Bone Mineral Density Test Completed 04/16/2013 [id number] Mammogram Completed 06/10/2011 [id number] Colonoscopy Completed 08/06/2009 769472907 Bone Mineral Density Test Completed 08/06/2009 [id number] Mammogram Completed 07/25/2007 [id number] Colonoscopy Completed Medical Devices Description No Information Available Encounters Type Date Location Provider Dx Diagnosis Office Visit 09/19/2018 [facility] Carlee Sewell, M25.552 Pain in left hip 10:45a [facility] M76.12 Psoas tendinitis, left hip Z96.642 Presence of left artificial hip joint Office Visit 09/06/2018 Orthopedic Ángel Brady76.72 Peroneal tendinitis, 10:00a [facility]alera left leg [facility] Office Visit 09/05/2018 [facility]ney E78.2 Mixed hyperlipidemia 2:20p Medicine - Keegan Powell M.D. E03.9 Hypothyroidism, unspecified Office Visit 08/13/2018 9:50a [facility] Courtney Powell M25.552 Pain in left Medicine - Keegan M.D. hip M25.522 Pain in left elbow R73.01 Impaired fasting glucose E78.2 Mixed hyperlipidemia I10 Essential (primary) hypertension Assessments Date Code Description Provider 11/12/2018 M25.549 Pain in joints of unspecified hand Rupaliofia Yung, [facility] 11/12/2018 M25.522 Pain in left elbow Rupaliofia Yung, [facility] 09/19/2018 M25.552 Pain in left hip [...] Powell M.D. Plan of Treatment Future Appointment(s):11/26/2018 3:00 pm - KYAW Sinclair at [facility] - [facility]11/21/2018 2:00 pm - Courtney Powell M.D. at [facility] Internal Medicine - [facility]11/12/2018 - LUDMILA SinclairPM25.549 Pain in joints of unspecified handNew Medication:Diclofenac Sodium 1 % - apply 1 grams on hands twice dailyComments:We will work up to rule out rheumatoid arthritis.We discussed today that rest by changing activities or wearing a splint can help. A splint or a snug sleeve (less restrictive) can support a joint. Paraffin baths and warm compresses can help to keep a joint mobile. The goal is to reduce pain, and preserve joint mobility and function as possible. Hand PT can teach joint protection exercises and activity modification to help protect joints. Anti-inflammatory medications (oral and topical) or a steroid injection into the joint can decrease pain, but neither cures osteoarthritis.Follow up:[address] FerreiraM25.522 Pain in left elbow Functional Status Description No Information Available Mental Status Description No Information Available Referrals Refer to Reason for Referral Status Appt Date Harry Mckeon MD multiple bone/joint pain Scheduled 11/12/2018 [address] [place] [address] [place] [address] [phone]
[2019-01-04 09:43] VITALS: BP 137/69
--- NOTE | 2019-01-04 10:34 | UC ---
Hand/Wrist HPI - HPI Summary HPI Summary: 78-year-old female presents with complaints of right wrist pain. States this morning she slipped on some ice, fell backwards, and landed on an outstretched arm. Complains of pain to the radial wrist. Pain worsens with movement. No alleviating factors. Denies any numbness, tingling or any other injury. - History Of Current Complaint Chief Complaint: UCUpperExtremity Stated Complaint: hand injury Time Seen by Provider: 01/04/19 10:07 Hx Obtained From: Patient Pain Intensity: 5 - Allergies/Home Medications Allergies/Adverse Reactions: Allergies Allergy/AdvReac Type Severity Reaction Status Date / Time Penicillins Allergy Severe Anaphylatic Verified 01/04/19 09:44 Shock codeine AdvReac Severe syncope Verified 01/04/19 09:44 Home Medications: Home Medications Cholecalciferol TAB* [Vitamin D TAB*] 1,000 unit PO DAILY 01/04/19 [History Confirmed 01/04/19] Cyanocobalamin TAB* [Vitamin B12 TAB*] 500 mcg PO DAILY 01/04/19 [History Confirmed 01/04/19] Hydrochlorothiazide TAB* [Hydrodiuril TAB*] 12.5 mg PO DAILY 01/04/19 [History Confirmed 01/04/19] celeCOXIB CAP* [CeleBREX CAP*] 200 mg PO DAILY 01/04/19 [History Confirmed 01/04] PMH/Surg Hx/FS Hx/Imm Hx Endocrine History: Thyroid Disease Cardiovascular History: Hypertension GI/ History: Other - [facility] - Surgical History Surgical History: Yes Surgery Procedure, Year, and Place: LEFT KNEE REPLACEMENT. 08/10, APPENDECTOMY, . BILAT KNEE ARTHROSCOPY,. BREAST IMPLANTS 1989 - . CATARACTS. Lt HIP REPLACEMENT - Family History Known Family History: Positive: None - Social History Occupation: Retired Lives: Alone Alcohol Use: Occasionally Substance Use Type: None Smoking Status (MU): Never Smoked Tobacco Review of Systems All Other Systems Reviewed And Are Negative: Yes Constitutional: Positive: Negative Skin: Negative: Bruising Respiratory: Positive: Negative Cardiovascular: Positive: Negative Gastrointestinal: Positive: Negative Genitourinary: Positive: Negative Motor: Negative: Weakness Neurovascular: Negative: Decreased Sensation Musculoskeletal: Positive: Other: - See HPI Neurological: Positive: Negative Is Patient Immunocompromised?: No Physical Exam - Summary Physical Exam Summary: GENERAL APPEARANCE: Well developed, well nourished, alert and cooperative, and appears to be in no acute distress. HEAD: Atraumatic. Normocephalic. NECK: Neck supple, non-tender. Full ROM CARDIAC: Normal S1 and S2. No S3, S4 or murmurs. Rhythm is regular. There is no peripheral edema, cyanosis or pallor. Extremities are warm and well perfused. Capillary refill is less than 2 seconds. Peripheral pulses intact. LUNGS: Clear to auscultation without rales, rhonchi, wheezing or diminished breath sounds. ABDOMEN: Positive bowel sounds. Soft, nondistended, nontender. No guarding or rebound. No masses or hepatosplenomegally. MUSKULOSKELETAL: ROM intact to all extremities. No joint erythema or tenderness. Normal muscular development. Normal gait. BACK: No spinal deformity or tenderness, decreased range of motion or muscular spasm. EXTREMITIES: Tenderness over the radial wrist without gross deformity, ecchymosis, or edema. Mildly reduced ROM due to pain. Circulation and sensation intact. SKIN: Skin normal color, texture and turgor with no lesions or eruptions. Triage Information Reviewed: Yes Vital Signs: Initial Vital Signs Temp 98.7 F 01/04/19 09:38 Pulse 65 01/04/19 09:38 Resp 16 01/04/19 09:38 BP 137/69 01/04/19 09:38 Pulse Ox 100 01/04/19 09:38 Vital Signs Reviewed: Yes Diagnostics - Radiology No standard instances Radiology Interpretation Completed By: Radiologist Summary of Radiographic Findings: Order Information: WRIST RIGHT 3+ VWS. HISTORY: FALL, PAIN . COMPARISONS: None relevant available at the time of dictation. VIEWS: 4, Frontal, lateral, and oblique views of the right wrist. FINDINGS: BONE DENSITY: There is diffuse osteopenia. BONES: There is no displaced fracture. 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 ALIGNMENT: There is no dislocation. SOFT TISSUES: Unremarkable. OTHER FINDINGS: None. IMPRESSION: OSTEOPENIA. OSTEOARTHRITIS. NO ACUTE OSSEOUS INJURY. Hand/Wrist Course/Dx - Course Course Of Treatment: 78-year-old female presents with complaints of right wrist pain. States this morning she slipped on some ice, fell backwards, and landed on an outstretched arm. Complains of pain to the radial wrist. Pain worsens with movement. No alleviating factors. Denies any numbness, tingling or any other injury. Afebrile. Vital signs stable. Patient had tenderness over the radial wrist without gross deformity, ecchymosis, or edema. Mildly reduced ROM due to pain. Circulation and sensation intact. Exam was unremarkable. X-ray showed no acute osseous injury. Reviewed findings with the patient. Recommending conservative treatment for a right wrist sprain including [id number] analgesics and RICE. Patient was given a dose of acetaminophen in the clinic for pain. She was placed in a cockup wrist splint by the RN. She is to follow- up with orthopedic surgery in 7 days if symptoms are not improving. Anticipatory guidance and warning symptoms were reviewed with the patient. Verbalizes understanding and agrees with plan of care. - Differential Dx/Diagnosis Differential Diagnosis/HQI/PQRI: Contusion, Dislocation, Fracture, Sprain Provider Diagnosis: Right wrist sprain Discharge ED - Sign-Out/Discharge Documenting (check all that apply): Patient Departure All imaging exams completed and their final reports reviewed: Yes - Discharge Plan Condition: Stable Disposition: HOME Patient Education Materials: Wrist Sprain (ED) Referrals: Courtney Powell MD [Primary Care Provider] - Carlee Sewell MD [Medical Doctor] - 7 Days (If no improvement. Call for appointment.) Additional Instructions: The x-ray performed in the clinic today showed no evidence of a fracture. Rest the wrist as much as possible. Apply ice to the affected area for 15-20 minutes at least 4 times a day to help with the pain and swelling. Elevate the arm to help reduce swelling. Take acetaminophen (Tylenol) or ibuprofen (Advil, Motrin) according to directions as needed for pain. Follow up with orthopedic surgery in 7 days if symptoms do not improve. Call for appointment. Seek immediate medical attention if you have severe pain not managed with pain medication, develop numbness or tingling in the hand or fingers, or have any worsening of symptoms. - Billing Disposition and Condition Condition: STABLE Disposition: Home
[2019-01-04] MEDS ORDERED: Acetaminophen TAB* 325 MG PO ONE (10:41)
== END 2019-01-04 10:48 | disposition home or self-care (01) ==
LOC: UCEAST 09:28
DX: S63.501A Unspecified sprain of right wrist, initial encounter (principal); W00.0XXA Fall on same level due to ice and snow, initial encounter; Y92.9 Unspecified place or not applicable; M85.831 Other specified disorders of bone density and structure, right forearm; M19.031 Primary osteoarthritis, right wrist; I10 Essential (primary) hypertension; Z96.652 Presence of left artificial knee joint; Z96.642 Presence of left artificial hip joint; Z88.5 Allergy status to narcotic agent; Z88.0 Allergy status to penicillin
CPT/HCPCS: 99213; A9270-GY; G0463

== ENCOUNTER 2019-01-19 13:02 | Emergency (ER) | payer MEDICARE ==
--- OUTSIDE RECORDS SUMMARY | 2019-01-19 13:08 | XMS REPORT | Continuity of Care Document ---
:1940 External Reference #:[id number] Author Name Cesar Ferreira MD (transmitted by agent of provider Allie Gasca) Address [address] [place] [id number] Care Team Providers Name Role Phone Courtney Powell MD - Internal Care Team Information [facility] Marisela García CNP - Adult Health Care Team Information [facility] [phone] Problems Active Problems Provider Date Hypothyroidism Kalli [...] Patient has never smoked Smoking Status Reviewed: 01/07/19 Patient has never smoked Exercise Type/Frequency Exercises regularly Allergies, Adverse Reactions, Alerts Active Allergies Reaction Severity Comments Date PCN 08/29/2006 Codeine ? felt faint 08/29/2006 Medications Active Medications SIG Qnty Indications Ordering Date Provider Hydroxychloroquine take one tab by 180tabs M06.4 Cesar Sulfate mouth daily for MD Hanna 9 200mg Tablets one week, then increase to one tab twice daily thereafter Celecoxib once a day 120caps M19.049 Cesar 100mg Capsules MD Hanna 9 Diclofenac Sodium apply 1 grams on 100gm M25.549 Zsofia 1% Gel hands twice daily KYAW Barragan 9 Shingrix intramuscular x 1 1units [facility] 50mcg/0.5ML then repeat in 4 Jason Powell 8 Suspension Rec months Norvasc 1 by mouth every 120tabs [facility] 10mg Tablets day Jason Powell 8 Levothyroxine Sodium Take 1 Tablet By 90tabs E03.9 [facility] 88mcg Mouth Every Other Jason Powell 6 Tablets Day Alternating With 100 mcg Levothyroxine Sodium Take 1 Tablet By 90tabs Courtney 100mcg Mouth Every Other Jason Powell 6 Tablets Day Alternating With 88 mcg Every Other Day Magnesium 1 by mouth daily [facility] 250mg Tablets Jason Powell 5 Oxybutynin Chloride ER take 1 tablet by 120tabs Courtney 10mg mouth once a day Jason Powell 4 Tablets ER 24HR Proair HFA Use 2 Puffs By 8.5units Courtney 108(90Base) Mouth Every 4 Jason Powell 4 mcg/Act Aerosol Hours as Needed Zetia take 1 tablet by 120tabs Courtney 10mg Tablets mouth every day Jason [...] 0 Needed Hydrochlorothiazide Take 1 Capsule By ladonna Courtney 12.5mg Mouth Every Day Jason Powell 0 Capsules Vitamin D 1 by mouth every Unknown 2000Unit Tablets day 0 Medications Administered in Office Medication SIG Qnty Indications Ordering Provider Date Depomedrol 40MG Ángel Escalera M.D. 01/01/2019 Injection Depomedrol 40MG Ángel Escalera M.D. 09/06/2018 Injection [...] CPT Code Status Date Vaccine Lot # [id number] Given 11/15/2018 Fluzone High Dose 98212 Given 01/22/2018 Pneumonia Vaccine [id number] 02600 Given 11/20/2017 Fluzone High Dose 41341 Given 10/28/2016 Influenza Virus Vaccine, Quadrivalent, Split, Preservative Free 45015 Given 12/25/2015 Fluzone High Dose 78718 Given 12/08/2014 Influenza Virus Vaccine, Quadrivalent, Split, [id number] Preservative Free 71259 Given 01/15/2014 Pneumococcal Conjugate Vaccine 13 Valent For [id number] Intramuscular Use 19773 Given 01/15/2014 Flu Vaccine Split Virus Preservative Free For [id number] Indiv 3Yr Older 60688 Given 11/06/2013 Tdap - Tetanus/Diptheria/Acellular Pertussis [id number] 13991 Given 12/18/2012 Flu Vaccine Split Virus Preservative Free For [id number] Indiv 3Yr Older 47059 Given 01/09/2012 Zoster (Zostavax) 30633 Given 01/09/2012 Zoster (Zostavax) [id number] Q2038 Given 11/23/2011 Fluzone Vaccine 29162 Given 12/03/2010 Influenza Virus 3Yrs & Over [id number] 08385 Given 12/28/2009 Influenza Virus 3Yrs & Over [id number] 51798 Given 03/23/2009 Influenza Virus Vaccine, Pandemic Formulation 54653 Given 03/23/2009 Administration Swine Flu Shot 28432 Given 06/03/2008 Pneumonia Vaccine [id number] 17937 Given 11/28/2006 Influenza Virus 3Yrs & Over 31859 Vital Signs Date Vital Result Comment 01/07/2019 2:16pm Height 64 inches 5'4" Weight 158.00 lb Heart Rate 72 /min BP Systolic 106 mmHg BP Diastolic 65 mmHg Body Temperature 98.8 F Pain Level 6 O2 % BldC Oximetry 97 % BMI (Body Mass Index) 27.1 kg/m2 01/01/2019 11:33am Height 64 inches 5'4" Weight 158.00 lb Heart Rate 68 /min BP Systolic 136 mmHg BP Diastolic 76 mmHg Body Temperature 98.6 F Pain Level 5 BMI (Body Mass Index) 27.1 kg/m2 Results Test Acquired Date Facility Test Result H/L Range Note Laboratory test 11/28/2018 [facility] TSH 0.06 mcIU/mL Low 0.34-5.[address] ([place] [address] Stim Horm) [phone] Free T4 (Free Thyroxine) 1.22 ng/dL High 0.61-1.12 Pthi 11/28/2018 [facility] Calcium (PTH 9.7 mg/dL Normal 8.6- 10.3 DRIVE Intact) [place] [address] [phone] PTH Intact 38.7 pg/mL Normal 12-88 Laboratory test 11/28/2018 [facility] Calcium 9.8 mg/dL Normal 8.6-10.[address] [place] [address] [phone] Phosphorus 4.6 mg/dL Normal 2.5-5.0 Iron & Iron Binding 11/28/2018 [facility] Iron 91 g/dL Normal 50-[address] [place] [address] [phone] Unsaturated Iron Binding < 349 g/dL Total Iron Binding Capacity 364 g/dL Normal 250-450 Transferrin 260 mg/dL Normal 203-362 % Iron Saturation 25 % Normal 15-55 Laboratory test 11/28/2018 [facility] Ferritin 48.0 ng/mL Normal 11-[address] [place] [address] [phone] Laboratory test 11/13/2018 [facility] C Reactive 5.95 mg/L Normal <8.01 [place] [address] [phone] Erythrocyte Sed Rate 10 mm/Hr Normal 0-29 Rheumatoid Factor < 10 IU/mL Normal <15 Uric Acid 6.4 mg/dL Normal 2.3-6.6 Cyclic Citrullinated Pep Igg <15.6 U 1 Comp Metabolic 11/13/2018 [facility] Sodium 140 mmol/L Normal 135-[address] [place] [address] [phone] Potassium 3.9 mmol/L Normal 3.5-5.0 Chloride 108 [...] Egfr 96.6 >60 2 CBC Auto 11/13/2018 [facility] White Blood 6.2 10^3/uL Normal 3.5-10.8 Diff [address] [place] [address] [phone] Red Blood Count 4.42 10^6/uL Normal 3.70-4.87 [...] Blood Cells % 0.1 Laboratory test 11/13/2018 [facility] Hemoglobin A1c 5.7 % High 4.0-5.[address] (Glyco HGB) [place] [address] [phone] Lipid Profile 11/13/2018 [facility] Triglycerides 140 4 (Trig/Chol/HDL) 101 mg/[place] [address] [phone] Cholesterol 200 mg/dL 5 HDL Cholesterol 57.0 mg/dL 6 LDL Cholesterol 115 mg/dL 7 Lipid Profile 09/03/2018 [facility] Triglycerides 177 mg/dL 8 (Trig/Chol/HDL) [address] [place] [address] [phone] Cholesterol 233 mg/dL 9 HDL Cholesterol 53.9 mg/dL 10 LDL Cholesterol 144 mg/dL 11 Laboratory test 09/03/2018 [facility] Hemoglobin A1c 5.5 % Normal 4.0-5.6 [address] (Glyco HGB) [place] [address] [phone] Comp Metabolic 09/03/2018 [facility] Sodium 143 Normal 135- [address] mmol/[place] [address] [phone] Potassium 3.8 mmol/L Normal 3.5-5.0 Chloride 108 [...] REFERENCE VALUE <20.0 (Negative) Test Performed by: [id number] [place] [address] Retail Advertising Account Executive: Dionisio Walsh M.D. Ph.D.; IA# [id number] 2 Because ethnic data is not always [...] in selective patients <6.0%. Please refer to [employer] diabetic care guidelines for further [...] in selective patients <6.0%. Please refer to [employer] diabetic care guidelines for further [...] (or dialysis) Procedures Date Code Description Status 01/01/201982472 Injection Single Tendon Origin/Insertion Completed 11/28/2018 64415 Ultrasound, Extremity, Nonvascular, Real-Time W/Image Completed Doc,Limited 09/06/201881254 Inject/Drain Joint/Bursa Small W/O US Completed 10/05/2017 [id number] Bone Mineral Density Test Completed 12/23/2016 [id number] Mammogram Completed 05/16/2016 [id number] Diabetic Retinal Eye Exam Completed 04/16/2013 [id number] Bone Mineral Density Test Completed 04/16/2013 [id number] Mammogram Completed 06/10/2011 [id number] Colonoscopy Completed 08/06/2009 [id number] Bone Mineral Density Test Completed 08/06/2009 [id number] Mammogram Completed 07/25/2007 [id number] Colonoscopy Completed Medical Devices Description No Information Available Encounters Type Date Location Provider Dx Diagnosis Office Visit 01/07/2019 Rheumatology Cesar Ferreira, M06.4 Inflammatory 2:00p Services Of [facility]io Azevedo MD polyarthropathy Ccmob M06.00 Rheumatoid arthritis without rheumatoid factor, [facility] Z91.89 Oth personal risk factors, not elsewhere classified Office Visit 11/28/2018 Rheumatology Cesar M06.4 Inflammatory 2:00p Services Of Honorio Ferreira MD polyarthropathy Ccmob M18.0 Bilateral primary osteoarth of first carpometacarp joints Office Visit 11/21/2018 [facility] Internal Courtney M19.049 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 E03.9 Hypothyroidism, unspecified Office Visit 11/12/2018 1:00p Rheumatology Callum Barragan, M25.541 Pain in Services Of [facility] - AIRLINE ATTENDANT joints [facility] right hand M25.522 Pain in left elbow M25.542 Pain in joints of left hand Office Visit 09/19/2018 10:45a [facility] Carlee Sewell, M25.552 Pain in left at [place] Jason hip M76.12 Psoas tendinitis, left hip Z96.642 Presence of left artificial hip joint Office Visit 09/06/2018 [facility] M76.72 Peroneal tendinitis, 10:00a Orthopedics at Jason Escalera left leg [place] Office Visit 09/05/2018 Honor[facility] Internal Courtney E78.2 Mixed hyperlipidemia 2:20p Tirso Powell M.D. E03.9 Hypothyroidism, unspecified Office Visit 08/13/2018 9:50a [facility] Internal Courtney Powell M25.552 Pain in left Medicine Roberto Carlos Allison M.D. hip M25.522 Pain in left elbow R73.01 Impaired fasting glucose E78.2 Mixed hyperlipidemia I10 Essential (primary) hypertension Assessments Date Code Description Provider 01/07/2019 M06.4 Inflammatory polyarthropathy Cesar Ferreira MD 01/07/2019 M06.00 Seronegative rheumatoid arthritis Cesar Ferreira MD 01/07/2019 Z91.89 Taking high risk medication Cesar Ferreira MD 01/01/2019 M76.72 Peroneal tendinitis, left leg Ángel Escalera M.D. 11/28/2018 M06.4 Inflammatory polyarthropathy Cesar Ferreira MD 11/28/2018 M18.0 Osteoarthritis of joint of left hand Cesar Ferreira MD 11/21/2018 M19.049 Primary osteoarthritis, unspecified hand Courtney Powell M.D. 11/21/2018 E03.9 Hypothyroidism, unspecified Courtney Powell M.D. 11/12/2018 M25.541 Pain in joints of right hand Zsofia Yung, [facility] 11/12/2018 M25.522 Pain in left elbow Zsofia Yung, [facility] 11/12/2018 M25.542 Pain in joints of left hand Zsofia Yung, [facility] 09/19/2018 M25.552 Pain in left hip [...] hypertension Courtney Powell M.D. 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 Starting treatment with hydroxychloraquine (plaquenil) 200mg twice daily. Also continuing celebrex 100mg daily. Joints involved include the MCPs bilaterally.Follow up:f/u when coming back (May timeframe)M06.00 Seronegative rheumatoid idxixbltoM10.89 Taking high risk medication Functional Status Description No Information Available Mental Status Description No Information Available Referrals Refer to Reason for Referral Status Appt Date Harry Mckeon MD multiple bone/joint pain Scheduled 11/12/2018 [address] [place] [address] [place] [address] [phone]
--- OUTSIDE RECORDS SUMMARY | 2019-01-19 13:08 | XMS REPORT | Continuity of Care Document ---
:1940 External Reference #:[id number] Author Name Courtney Powell M.D. (transmitted by agent of provider Allie Gasca) Address [address] [facility], [place] [address] Care Team Providers Name Role Phone Courtney Powell MD - Internal Care Team Information [employer] [facility] Marisela García CNP - Adult Health Care Team Information [employer] Problems Active Problems Provider Date Hypothyroidism Paige Rivers N.P. Onset: 12/03/2010 Essential hypertension Maisha Mg [...] Patient has never smoked Smoking Status Reviewed: 01/16/19 Patient has never smoked Exercise Type/Frequency Exercises regularly Allergies, Adverse Reactions, Alerts Active Allergies Reaction Severity Comments Date PCN 08/29/2006 Codeine ? felt faint 08/29/2006 Medications Active Medications SIG Qnty Indications Ordering Date Provider Doxycycline Monohydrate 1 cap by mouth 20caps Courtney 11/20/201 100mg twice a day Jason Powell 9 Capsules Mupirocin apply 3 times a 22gm R21 Néstor Palomares. 2% Ointment day for 10 days Jason Okeefe 9 Hydroxychloroquine has not started 180tabs M06.4 Cesar Sulfate yet----take one MD Hanna 9 200mg Tablets tab by mouth daily for one week, then increase to one tab twice daily thereafter Celecoxib once a day 120caps M19.049 Cesar 100mg Capsules MD Hanna 9 Diclofenac Sodium apply 1 grams on 100gm M25.549 Zsofia 1% Gel hands twice daily KYAW Barragan 9 Shingrix intramuscular x 1 1units [facility] 50mcg/0.5ML then repeat in 4 Jason Powell 8 Suspension Rec months Norvasc 1 by mouth every 120tabs [facility] 10mg Tablets day Jason Powell 8 Levothyroxine Sodium Take 1 Tablet By 90tabs E03.9 [facility] 88mcg Mouth Every Other Jason Powell 6 Tablets Day Alternating With 100 mcg Levothyroxine Sodium Take 1 Tablet By 90tabs Courtney 100mcg Mouth Every Other Jason Powell 6 Tablets Day Alternating With 88 mcg Every Other Day Magnesium 1 by mouth daily [facility] 250mg Tablets Jason Powell 5 Oxybutynin Chloride ER take 1 tablet by 120tabs [facility] 10mg mouth once a day Jason Powell 4 Tablets ER 24HR Proair HFA Use 2 Puffs By 8.5units [facility] 108(90Base) Mouth Every 4 Jason Powell 4 mcg/Act Aerosol Hours as Needed Zetia take 1 tablet by 120tabs [facility] 10mg Tablets mouth every day Jason Powell 3 Fluticasone Propionate use 1 spray in 16gm [facility] each nostril in Jason Powell 7 50mcg/Act [...] mouth every Unknown 2000Unit Tablets day 0 History Medications Keflex 1 tab three 30caps L01.00 Courtney Andre, 01/16/2019 - 500mg times a day x M.DBoo 01/16/2019 Capsules 10 days Medications Administered in Office Medication SIG Qnty [...] CPT Code Status Date Vaccine Lot # [id number] Given 11/15/2018 Fluzone High Dose 28181 Given 01/22/2018 Pneumonia Vaccine [id number] 35105 Given 11/20/2017 Fluzone High Dose 60620 Given 10/28/2016 Influenza Virus Vaccine, Quadrivalent, Split, Preservative Free 09060 Given 12/25/2015 Fluzone High Dose 24354 Given 12/08/2014 Influenza Virus Vaccine, Quadrivalent, Split, [id number] Preservative Free 84156 Given 01/15/2014 Pneumococcal Conjugate Vaccine 13 Valent For [id number] Intramuscular Use 81782 Given 01/15/2014 Flu Vaccine Split Virus Preservative Free For 060995 Indiv 3Yr Older 82146 Given 11/06/2013 Tdap - Tetanus/Diptheria/Acellular Pertussis [id number] 94073 Given 12/18/2012 Flu Vaccine Split Virus Preservative Free For [id number] Indiv 3Yr Older 37840 Given 01/09/2012 Zoster (Zostavax) 60292 Given 01/09/2012 Zoster (Zostavax) [id number] Q2038 Given 11/23/2011 Fluzone Vaccine 27692 Given 12/03/2010 Influenza Virus 3Yrs & Over [id number] 73531 Given 12/28/2009 Influenza Virus 3Yrs & Over [id number] 96018 Given 03/23/2009 Influenza Virus Vaccine, Pandemic Formulation 06353 Given 03/23/2009 Administration Swine Flu Shot 38938 Given 06/03/2008 Pneumonia Vaccine [id number] 51485 Given 11/28/2006 Influenza Virus 3Yrs & Over 07331 Vital Signs Date Vital Result Comment 01/16/2019 1:50pm Height 64 inches 5'4" Weight 155.00 lb Heart Rate 77 /min BP Systolic Sitting 130 mmHg BP Diastolic Sitting 72 mmHg O2 % BldC Oximetry 97 % BMI (Body Mass Index) 26.6 kg/m2 01/14/2019 2:01pm Height 64 inches 5'4" Weight 158.00 lb Heart Rate 77 /min BP Systolic Sitting 119 mmHg BP Diastolic Sitting 76 mmHg Body Temperature 98.5 F BMI (Body Mass Index) 27.1 kg/m2 Results Test Acquired Date Facility Test Result H/L Range Note Laboratory test 11/28/[address] [facility] TSH 0.06 mcIU/mL Low 0.34-5.[address] ([place] [address] Stim Horm) [phone] Free T4 (Free Thyroxine) 1.22 ng/dL High 0.61-1.12 Pthi 11/28/[address] [facility] Calcium (PTH 9.7 mg/dL Normal 8.6- 10.[address] Intact) [place] [address] [phone] PTH Intact 38.7 pg/mL Normal 12-88 Laboratory test 11/28/[address] [facility] Calcium 9.8 mg/dL Normal 8.6-10.3 finding [address] [place] [address] [phone] Phosphorus 4.6 mg/dL Normal 2.5-5.0 Iron & Iron Binding 11/28/[address] [facility] Iron 91 g/dL Normal 50-212 [address] [place] [address] [phone] Unsaturated Iron Binding < 349 g/dL Total Iron Binding Capacity 364 g/dL Normal 250-450 Transferrin 260 mg/dL Normal 203-362 % Iron Saturation 25 % Normal 15-55 Laboratory test 11/28/[address] [facility] Ferritin 48.0 ng/mL Normal 11-[address] [place] [address] [phone] Laboratory test 11/13/[address] [facility] C Reactive 5.95 mg/L Normal <8.01 finding [facility] [place] [address] [phone] Erythrocyte Sed Rate 10 mm/Hr Normal 0-29 Rheumatoid Factor < 10 IU/mL Normal <15 Uric Acid 6.4 mg/dL Normal 2.3-6.6 Cyclic Citrullinated Pep Igg <15.6 U 1 Comp Metabolic 11/13/[address] [facility] Sodium 140 mmol/L Normal 135-[address] [place] [address] [phone] Potassium 3.9 mmol/L Normal 3.5-5.0 Chloride 108 [...] Egfr 96.6 >60 2 CBC Auto 11/13/[address] [facility] White Blood 6.2 10^3/uL Normal 3.5-10.[address] [place] [address] [phone] Red Blood Count 4.42 10^6/uL Normal 3.70-4.87 [...] Blood Cells % 0.1 Laboratory test 11/13/[address] [facility] Hemoglobin A1c 5.7 % High 4.0-5.6 [address] (Glyco HGB) [place] [address] [phone] Lipid Profile 11/13/[address] [facility] Triglycerides 140 4 (Trig/Chol/HDL) [address] mg/[place] [address] [phone] Cholesterol 200 mg/dL 5 HDL Cholesterol 57.0 mg/dL 6 LDL Cholesterol 115 mg/dL 7 Lipid Profile 09/03/[address] [facility] Triglycerides 177 mg/dL 8 (Trig/Chol/HDL) [address] [place] [address] [phone] Cholesterol 233 mg/dL 9 HDL Cholesterol 53.9 mg/dL 10 LDL Cholesterol 144 mg/dL 11 Laboratory test 09/03/[address] [facility] Hemoglobin A1c 5.5 % Normal 4.0-5.6 [address] (Glyco HGB) [place] [address] [phone] Comp Metabolic 09/03/[address] [facility] Sodium 143 Normal 135- [address] mmol/[place] [address] [phone] Potassium 3.8 mmol/L Normal 3.5-5.0 Chloride 108 [...] REFERENCE VALUE <20.0 (Negative) Test Performed by: [facility] [address] [place] [address] Conditioner Tumbler: Dionisio Walsh M.D. Ph.D.; CLIA# [id number] 2 Because ethnic data is not always [...] in selective patients <6.0%. Please refer to [place] [employer] diabetic care guidelines for further [...] in selective patients <6.0%. Please refer to [place] [employer] diabetic care guidelines for further [...] dialysis) Procedures Date Code Description Status 01/01/2019 Injection Single Tendon Origin/Insertion Completed 11/28/2018 20150 Ultrasound, Extremity, Nonvascular, Real-Time W/Image Completed Doc,Limited 09/06/2018 Inject/Drain Joint/Bursa Small W/O US Completed 10/05/2017 [id number] Bone Mineral Density Test Completed 12/23/2016 [id number] Mammogram Completed 05/16/2016 [id number] Diabetic Retinal Eye Exam Completed 04/16/2013 [id number] Bone Mineral Density Test Completed 04/16/2013 [id number] Mammogram Completed 06/10/2011 [id number] Colonoscopy Completed 08/06/2009 [id number] Bone Mineral Density Test Completed 08/06/2009 [id number] Mammogram Completed 07/25/2007 [id number] Colonoscopy Completed Medical Devices Description No Information Available Encounters Type Date Location Provider Dx Diagnosis Office Visit 11/28/2018 Rheumatology Cesar Ferreira, M06.4 Inflammatory 2:00p Services Of [employer] - MD polyarthropathy Ccmob M18.0 Bilateral primary osteoarth of first carpometacarp joints Office Visit 11/21/2018 [facility] Courtney M19.049 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 osteoarthritis, [facility] unspecified hand E03.9 Hypothyroidism, unspecified Office Visit 11/12/2018 1:00p Rheumatology Callum Barragan, M25.541 Pain in Services Of [facility] - [employer] MANAGER joints of Ccmob right hand M25.522 Pain in left elbow M25.542 Pain in joints of left hand Office Visit 09/19/2018 10:45a [facility] Carlee Sewell M25.552 Pain in left at Jass Gomez hip M76.12 Psoas tendinitis, left hip Z96.642 Presence of left artificial hip joint Office Visit 09/06/2018 Paola Neal M76.72 Peroneal tendinitis, 10:00a Orthopedics at Jason Escalera left leg [place] Office Visit 09/05/2018 [facility] Internal Courtney E78.2 Mixed hyperlipidemia 2:20p Tirso Powell M.D. E03.9 Hypothyroidism, unspecified Office Visit 08/13/2018 9:50a [employer] Internal Courtney Powell, M25.552 Pain in left Medicine - [facility] M.D. hip M25.522 Pain in left elbow R73.01 Impaired fasting glucose E78.2 Mixed hyperlipidemia I10 Essential (primary) hypertension Assessments Date Code Description Provider 01/16/2019 L01.00 Impetigo, unspecified Courtney Powell M.D. 01/16/2019 M25.531 Pain in right wrist Courtney Powell M.D. 01/14/2019 R21 Rash and other nonspecific skin eruption Néstor Okeefe M.D. 01/07/2019 M06.4 Inflammatory polyarthropathy Cesar Ferreira MD [...] in joints of right hand Zsofia Yung, [facility] 11/12/2018 M25.522 Pain in left elbow Zsofia Yung, [facility] 11/12/2018 M25.542 Pain in joints of left hand Zsofia Yung, [facility] 09/19/2018 M25.552 Pain in left hip Carlee [...] Powell M.D. 08/13/2018 E78.2 Mixed hyperlipidemia Courtney Pwoell M.D. 08/13/2018 I10 Essential (primary) hypertension Courtney Powell M.D. Plan of Treatment Future Appointment(s):01/22/2019 11:00 am - Unruly Cruz MD at [facility]/16/2019 - Courtney Powell M.D.L01.00 Impetigo, unspecifiedNew Medication:Keflex 500 mg - 1 tab three times a day x 10 daysM25.531 Pain in right wristReferral:Ángel Quevedo MD, Surgery,Hand Orthopedic Functional Status Description No Information Available Mental Status Description No Information Available Referrals Refer to Dr Reason for Referral Status Appt Date Ángel Quevedo MD Sent 01/22/2019 [address] [place] [address] [phone] Harry Mckeon MD multiple bone/joint pain Scheduled 11/12/2018 [address] [facility] [place] [address] [phone]
--- OUTSIDE RECORDS SUMMARY | 2019-01-19 13:08 | XMS REPORT | Continuity of Care Document ---
:1940 External Reference #:[id number] Author Name Néstor Okeefe M.D. (transmitted by agent of provider No Slaughter ) Address [address], [place] [address] Care Team Providers Name Role Phone Courtney Powell MD - Internal Care Team Information [employer] Marisela García CNP - Adult Health Care Team Information Gta Problems Active Problems Provider Date Hypothyroidism Paige [...] Patient has never smoked Smoking Status Reviewed: 01/14/19 Patient has never smoked Exercise Type/Frequency Exercises regularly Allergies, Adverse Reactions, Alerts Active Allergies Reaction Severity Comments Date PCN 08/29/2006 Codeine ? felt faint 08/29/2006 Medications Active Medications SIG Qnty Indications Ordering Date Provider Mupirocin apply 3 times a 22gm R21 Néstor Campos 2% Ointment day for 10 days Jason Okeefe 9 Hydroxychloroquine take one tab by 180tabs M06.4 Cesar Sulfate mouth daily for MD Hanna 9 200mg Tablets one week, then increase to one tab twice daily thereafter Celecoxib once a day 120caps M19.049 Cesar 100mg Capsules MD Hanna 9 Diclofenac Sodium apply 1 grams on 100gm M25.549 Zsofia 1% Gel hands twice daily KYAW Barragan 9 Shingrix intramuscular x 1 1units [facility] 50mcg/0.5ML then repeat in 4 Jason Powell 8 Suspension Rec months Norvasc 1 by mouth every 120tabs [facility] 10mg Tablets day Jason Powell 8 Levothyroxine Sodium Take 1 Tablet By 90tabs E03.9 Courtney 88mcg Mouth Every Other Jason Powell 6 Tablets Day Alternating With 100 mcg Levothyroxine Sodium Take 1 Tablet By 90tabs [facility] 100mcg Mouth Every Other Jason Powell 6 Tablets Day Alternating With 88 mcg Every Other Day Magnesium 1 by mouth daily [facility] 250mg Tablets Jason Powell 5 Oxybutynin Chloride ER take 1 tablet by 120tabs [facility] 10mg mouth once a day Jason Powell 4 Tablets ER 24HR Proair HFA Use 2 Puffs By 8.5units [facility] 108(90Base) Mouth Every 4 Jason Powell 4 mcg/Act Aerosol Hours as Needed Zetia take 1 tablet by 120tabs [facility] 10mg Tablets mouth every day Jason Powell 3 Fluticasone Propionate use 1 spray in 16gm Courtney each nostril in Jason Powell 7 50mcg/Act Suspension the morning Aspir-81 1 PO qd Raciel Farser, 81mg Tablets DR HERMOSILLO 0 Vitamin B-12 1 by mouth 3 times Unknown 5000mcg Tablet a week 0 Premarin 1 application by Unknown Cream way of vagina 0 twice a week Omeprazole Take 1 Capsule By ladonna K21.[address] Mouth Daily [...] Injection Celestone 3 mg and 3mg Ángel uQevedo MD 12/27/2017 Injection Depomedrol 80MG Connor Ahmadi M.D. 10/20/2014 Injection Depomedrol 80MG Connor Ahmadi M.D. 08/11/2014 Injection Synvisc Or Synvisc-One Injection Connor Ahmadi M.D. 12/13/2010 1 MG Injection Synvisc Or Synvisc-One Injection Connor Ahmadi M.D. 12/13/2010 1 MG Injection Immunizations CPT Code Status Date Vaccine Lot # [id number] Given 11/15/2018 Fluzone High Dose 68840 Given 01/22/2018 Pneumonia Vaccine [id number] 14480 Given 11/20/2017 Fluzone High Dose 23504 Given 10/28/2016 Influenza Virus Vaccine, Quadrivalent, Split, Preservative Free 92396 Given 12/25/2015 Fluzone High Dose 19848 Given 12/08/2014 Influenza Virus Vaccine, Quadrivalent, Split, [id number] Preservative Free 94258 Given 01/15/2014 Pneumococcal Conjugate Vaccine 13 Valent For [id number] Intramuscular Use 67972 Given 01/15/2014 Flu Vaccine Split Virus Preservative Free For [id number] Indiv 3Yr Older 27875 Given 11/06/2013 Tdap - Tetanus/Diptheria/Acellular Pertussis [id number] 85838 Given 12/18/2012 Flu Vaccine Split Virus Preservative Free For [id number] Indiv 3Yr Older 33298 Given 01/09/2012 Zoster (Zostavax) 57238 Given 01/09/2012 Zoster (Zostavax) [id number] Q2038 Given 11/23/2011 Fluzone Vaccine 66111 Given 12/03/2010 Influenza Virus 3Yrs & Over [id number] 23605 Given 12/28/2009 Influenza Virus 3Yrs & Over [id number] 22300 Given 03/23/2009 Influenza Virus Vaccine, Pandemic Formulation 71148 Given 03/23/2009 Administration Swine Flu Shot 18811 Given 06/03/2008 Pneumonia Vaccine [id number] 19184 Given 11/28/2006 Influenza Virus 3Yrs & Over [id number] Vital Signs Date Vital Result Comment 01/14/2019 2:01pm Height 64 inches 5'4" Weight 158.00 lb Heart Rate 77 /min BP Systolic Sitting 119 mmHg BP Diastolic Sitting 76 mmHg Body Temperature 98.5 F BMI (Body Mass Index) 27.1 kg/m2 01/07/2019 2:16pm Height 64 inches 5'4" Weight 158.00 lb Heart Rate 72 /min BP Systolic 106 mmHg BP Diastolic 65 mmHg Body Temperature 98.8 F Pain Level 6 O2 % BldC Oximetry 97 % BMI (Body Mass Index) 27.1 kg/m2 Results Test Acquired Date Facility Test Result H/L Range Note Laboratory test 11/28/2018 [facility] TSH 0.06 mcIU/mL Low 0.34-5.[address] ([place] [address] Stim Horm) [phone] Free T4 (Free Thyroxine) 1.22 ng/dL High 0.61-1.12 Pthi 11/28/2018 [facility] Calcium (PTH 9.7 mg/dL Normal 8.6- 10.[address] Intact) [place] [address] [phone] PTH Intact 38.7 pg/mL Normal 12-88 Laboratory test 11/28/2018 [facility] Calcium 9.8 mg/dL Normal 8.6-10.[address] [place] [address] [phone] Phosphorus 4.6 mg/dL Normal 2.5-5.0 Iron & Iron Binding 11/28/2018 [facility] Iron 91 g/dL Normal 50-[address] [place] [address] [phone] Unsaturated Iron Binding < 349 g/dL Total Iron Binding Capacity 364 g/dL Normal 250-450 Transferrin 260 mg/dL Normal 203-362 % Iron Saturation 25 % Normal 15-55 Laboratory test 11/28/2018 [facility] Ferritin 48.0 ng/mL Normal 11-[address] [place] [address] [phone] Laboratory test 11/13/2018 [facility] C Reactive 5.95 mg/L Normal <8.01 finding [address] [facility] [place] [address] [phone] Erythrocyte Sed Rate 10 mm/Hr Normal 0-29 Rheumatoid Factor < 10 IU/mL Normal <15 Uric Acid 6.4 mg/dL Normal 2.3-6.6 Cyclic Citrullinated Pep Igg <15.6 U 1 Comp Metabolic 11/13/2018 [facility] Sodium 140 mmol/L Normal 135-[address] [place] [address] [phone] Potassium 3.9 mmol/L Normal 3.5-5.0 Chloride 108 [...] 96.6 >60 2 CBC Auto 11/13/2018 [facility] White Blood 6.2 10^3/uL Normal 3.5-10.[address] [place] [address] [phone] Red Blood Count 4.42 10^6/uL Normal 3.70-4.87 [...] Cells % 0.1 Laboratory test 11/13/2018 [facility] Hemoglobin A1c 5.7 % High 4.0-5.[address] (Glyco HGB) [place] [address] [phone] Lipid Profile 11/13/2018 [facility] Triglycerides 140 4 (Trig/Chol/HDL) [address] mg/[place] [address] [phone] Cholesterol 200 mg/dL 5 HDL Cholesterol 57.0 mg/dL 6 LDL Cholesterol 115 mg/dL 7 Lipid Profile 09/03/2018 [facility] Triglycerides 177 mg/dL 8 (Trig/Chol/HDL) [address] [place] [address] [phone] Cholesterol 233 mg/dL 9 HDL Cholesterol 53.9 mg/dL 10 LDL Cholesterol 144 mg/dL 11 Laboratory test 09/03/2018 [facility] Hemoglobin A1c 5.5 % Normal 4.0-5.6 [address] (Glyco HGB) [place] [address] [phone] Comp Metabolic 09/03/2018 [facility] Sodium 143 Normal 135- [address] mmol/[place] [address] [phone] Potassium 3.8 mmol/L Normal 3.5-5.0 Chloride 108 [...] REFERENCE VALUE <20.0 (Negative) Test Performed by: [place] [address] Truck Bench Mechanic: Dionisio Walsh M.D. Ph.D.; [facility]# [id number] 2 Because ethnic data is not always [...] dialysis) Procedures Date Code Description Status 01/01/2019 90326 Injection Single Tendon Origin/Insertion Completed 11/28/2018 75823 Ultrasound, Extremity, Nonvascular, Real-Time W/Image Completed Doc,Limited 09/06/2018 32791 Inject/Drain Joint/Bursa Small W/O US Completed 10/05/2017 [id number] Bone Mineral Density Test Completed 12/23/2016 [id number] Mammogram Completed 05/16/2016 [id number] Diabetic Retinal Eye Exam Completed 04/16/2013 [id number] Bone Mineral Density Test Completed 04/16/2013 [id number] Mammogram Completed 06/10/2011 [id number] Colonoscopy Completed 08/06/2009 [id number] Bone Mineral Density Test Completed 08/06/2009 [id number] Mammogram Completed 07/25/2007 [id number] Colonoscopy Completed Medical Devices Description No Information Available Encounters Type Date Location Provider Dx Diagnosis Office Visit 11/28/2018 Rheumatology Cesar Ferreira, M06.4 Inflammatory 2:00p [facility] B[facility] primary osteoarth of first carpometacarp joints Office Visit 11/21/2018 [facility] Courtney M19.049 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 osteoarthritis, Ccmob unspecified hand E03.9 Hypothyroidism, unspecified Office Visit 11/12/2018 1:00p Rheumatology Callum Barragan, M25.541 Pain in [facility] M25.522 Pain in left elbow M25.542 Pain in joints of left hand Office Visit 09/19/2018 10:45a [facility] Carlee Sewell M25.552 Pain in left [place] hip M76.12 Psoas tendinitis, left hip Z96.642 Presence of left artificial hip joint Office Visit 09/06/2018 [facility] Ángel M76.72 Peroneal tendinitis, 10:00a [facility]oped[facility] ila Escalera M.D. left leg [place] Office Visit 09/05/2018 [facility] Valdez E78.2 Mixed hyperlipidemia 2:20p Tirso Powell M.D. E03.9 Hypothyroidism, unspecified Office Visit 08/13/2018 9:50a [facility] Powell M25.552 Pain in left Medicine - Keegan MéndezDBoo hip M25.522 Pain in left elbow R73.01 Impaired fasting glucose E78.2 Mixed hyperlipidemia I10 Essential (primary) hypertension Assessments Date Code Description Provider 01/14/2019 R21 Rash and other nonspecific skin [...] in joints of right hand Zsofia Yung, [facility] 11/12/2018 M25.522 Pain in left elbow Zsofia Yung, [facility] 11/12/2018 M25.542 Pain in joints of left hand Zsofia Yung, [facility] 09/19/2018 M25.552 Pain in left hip Carlee [...] hypertension Courtney Powell M.D. Plan of Treatment 01/14/2019 - Néstor Okeefe M.D.R21 Rash and other nonspecific skin eruptionNew Medication:Mupirocin 2 % - apply 3 times a day for 10 daysComments: Several day hx areas of tender pink rash on scalp; ? a bit better with OTC topical antibiotic cream per pt. Rx for topical Mupirocin sent in to continue Rx for possible impetigo rash, but further dermeval advised if sx persist/worsen Functional Status Description No Information Available Mental Status Description No Information Available Referrals Refer to Dr Reason for Referral Status Appt Date Harry Mckeon MD multiple bone/joint pain Scheduled 11/12/2018 [address] [facility] [place] [address] [place] [address] [phone]
--- NOTE | 2019-01-19 13:17 | UC ---
Eye Complaint HPI - HPI Summary HPI Summary: 78 yo female presents with rash to face. She tells me that 1 week ago she noticed some pain and burning to her front scalp and left forehead. 2-3 days later developed a red rash. She saw her PCP who dx'd her with impetigo and placed on her bactroban ointment. She used that for 2 days, but rash did not improve and kept spreading. She saw another provider at her PCP's office and was placed on doxycycline. Pt has been taking doxycycline for 2 days and rash is still spreading - today onto left eyelid. Rash is blistering and draining with increased pain. She is having mild headaches on the left side. No eye pain or vision changes. - History of Current Complaint Stated Complaint: SKIN ISSUE Time Seen by Provider: 01/19/19 13:15 Hx Obtained From: Patient Onset/Duration: Gradual Onset Severity Initially: Moderate Severity Currently: Moderate Pain Intensity: 6 Pain Scale Used: 0-10 Numeric - Allergies/Home Medications Allergies/Adverse Reactions: Allergies Allergy/AdvReac Type Severity Reaction Status Date / Time Penicillins Allergy Severe Anaphylatic Verified 01/19/19 13:19 Shock codeine AdvReac Severe syncope Verified 01/19/19 13:19 Home Medications: Home Medications Acetaminophen [Acetaminophen Extra Strength] 1,000 mg PO ONCE PRN 01/19/19 [ History Confirmed 01/19/19] Hydroxychloroquine Sulfate [Plaquenil] 1 tab PO DAILY 01/19/19 [History Confirmed 01/19/19] Magnesium 250 mg PO DAILY 01/19/19 [History Confirmed 01/19/19] PMH/Surg Hx/FS Hx/Imm Hx - Additional Past Medical History Additional PMH: OVeractive bladder Rheumatoid arthritis Endocrine History: Hypothyroidism Cardiovascular History: Hypertension - Surgical History Surgical History: Yes Surgery Procedure, Year, and Place: LEFT KNEE REPLACEMENT. 08/10, APPENDECTOMY, . BILAT KNEE ARTHROSCOPY,. BREAST IMPLANTS 1989 - . CATARACTS. Lt HIP REPLACEMENT - Family History Known Family History: Positive: None - Social History Lives: With Family Alcohol Use: Occasionally Substance Use Type: None Smoking Status (MU): Never Smoked Tobacco Review of Systems All Other Systems Reviewed And Are Negative: No Constitutional: Positive: Negative Skin: Positive: Rash Eyes: Positive: Negative ENT: Positive: Negative Respiratory: Positive: Negative Cardiovascular: Positive: Negative Gastrointestinal: Positive: Negative Neurological: Positive: Negative Psychological: Positive: Negative Physical Exam - Summary Physical Exam Summary: GENERAL: NAD. WDWN. No pain distress. SKIN: Frontal scalp and left forehead with mildly erythematous patches of blistering and clear discharge. 2 small lesions of similar appearance on left eyelid. All TTP. HEENT: Head: AT/NC Eyes: EOM intact. Conjunctiva clear without inflammation or discharge. Ears: Hearing grossly normal. TMs intact, no bulging, erythema, or edema. NECK: Supple. Nontender. No lymphadenopathy. CHEST: CTAB. No accessory muscle use. Breathing comfortably and in no distress. CV: RRR. Pulses intact. Cap refill <2seconds NEURO: Alert. PSYCH: Age appropriate behavior. 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 Will start pt on valacyclovir given her immunocompromised status and location of lesions. I called Dr. Paz's office ( eye doctor) who will see pt now for further eval of her eye. Advised to keep lesions covered until well healed - Differential Dx/Diagnosis Provider Diagnosis: Ophthalmic herpes zoster Discharge ED - Sign-Out/Discharge Documenting (check all that apply): Patient Departure All imaging exams completed and their final reports reviewed: No Studies - Discharge Plan Condition: Stable Disposition: HOME Prescriptions: ValACYclovir (*) [Valtrex 1 GM(*)] 1 gm PO TID #21 tab Patient Education Materials: Shingles (ED) Referrals: Courtney Powell MD [Primary Care Provider] - Harry Paz MD [Medical Doctor] - As Soon As Possible Additional Instructions: Dr. Paz will see you now for the shingles around your eye - Billing Disposition and Condition Condition: STABLE Disposition: Home - Attestation Statements Provider Attestation: I was available for consult. This patient was seen by the LORI. The patient was not presented to , seen by or examined by ar -Clara Rollins MD
[2019-01-19 13:21] VITALS: BP 117/94
== END 2019-01-19 13:33 | disposition home or self-care (01) ==
LOC: UCEAST 13:02
DX: B02.30 Zoster ocular disease, unspecified (principal); M06.9 Rheumatoid arthritis, unspecified; I10 Essential (primary) hypertension; Z88.0 Allergy status to penicillin; Z88.5 Allergy status to narcotic agent; Z79.899 Other long term (current) drug therapy
CPT/HCPCS: 99211; G0463